=== PATIENT | male | born 1970 | race African-American/Black ===

== ENCOUNTER 2017-05-10 21:41 | Emergency (ER) | payer OTHER ==
[~2017-05-10] VITALS: Ht 175.3 cm; Wt 113.4 kg
[~2017-05-10 21:41] MED LIST: DOXY-4 PO; FLUC200T38 PO; LACTIN PO; LOSA50TA3 PO; OXYC-133 PO
[2017-05-10 21:48] VITALS: BP_SYST 125
[2017-05-10 22:28] LABS: BASOPHILS # (AUTO) 0.1 K/uL (0.0-0.2); BASOPHILS % (AUTO) 0.7 % (0.0-2.0); EOSINOPHILS # (AUTO) 0.1 K/uL (0.0-0.4); EOSINOPHILS % (AUTO) 1.4 % (0.0-4.0); HEMATOCRIT 40.8 % (36-54); HEMOGLOBIN 13.1 g/dL (14.0-18.0); LYMPHOCYTES # (AUTO) 3.9 K/uL (1.0-5.5); LYMPHOCYTES % (AUTO) 36.4 % (20.5-51.5); MEAN CORPUSCULAR HEMOGLOBIN 27 pg (27-31); MEAN CORPUSCULAR HGB CONC 32 % (32-36); MEAN CORPUSCULAR VOLUME 83 fL (79.0-98.0); MONOCYTES # (AUTO) 0.8 K/uL (0.0-1.0); MONOCYTES % (AUTO) 7.7 % (1.7-9.3); NEUTROPHILS # (AUTO) 5.8 K/uL (1.8-7.7); NEUTROPHILS % (AUTO) 53.8 % (40.0-70.0); PLATELET COUNT (AUTO) 198 K/uL (130-430); RED BLOOD CELL COUNT(AUTO) 4.92 MIL/uL (4.2-6.2); WHITE BLOOD COUNT (AUTO) 10.7 K/uL (4.8-10.8)
[2017-05-10 22:37] LABS: PROTHROMBIN TIME 10.2 SECS (9.5-12.5)
[2017-05-10 22:38] LABS: ALBUMIN 3.6 g/dL (3.4-4.8); CALCIUM 8.6 mg/dL (8.4-11.0); CREATININE 0.98 mg/dL (0.55-1.30); POTASSIUM 3.3 mmol/L (3.5-5.1); TOTAL BILIRUBIN 0.3 mg/dL (0.0-1.0)
--- NOTE | 2017-05-10 23:17 | NUR ---
PATIENT CALLED BACK TO TRIAGE FOR REASSESSMENT. PATIENT NOT IN WAITING ROOM. WILL CALL BACK IN 10 MINS.
--- NOTE | 2017-05-10 23:27 | NUR ---
PATIENT CALLED BACK FOR RE ASSESSMENT IN TRIAGE ROOM. PATIENT NOT IN WAITING ROOM. WILL CALL BACK IN 10 MINUTES.
--- NOTE | 2017-05-10 23:37 | NUR ---
Manoj jaffe in ED - 05/10/17 at 9783 by [email or web address] PATIENT CALLED BACK FOR RE ASSESSMENT IN TRIAGE ROOM. PATIENT NOT IN WAITING ROOM. WILL CALL BACK IN 10 MINUTES.
--- NOTE | 2017-05-10 23:37 | NUR ---
PATIENT CALLED BACK FOR RE ASSESSMENT IN TRIAGE ROOM. PATIENT NOT IN WAITING ROOM. PATIENT LEFT WITHOUT BEING SEEN BY PHYSICIAN
== END 2017-05-10 23:37 | disposition left against medical advice (07) ==
LOC: SED 21:41
DX: R07.89 Other chest pain (principal); Z53.21 Procedure and treatment not carried out due to patient leaving prior to being seen by health care provider
CPT/HCPCS: 36415; 80053; 83880; 84484; 85025; 85610-TC; 85730-TC; 93005; 99281

== ENCOUNTER 2019-07-13 11:14 | Emergency (ER) | payer OTHER ==
[~2019-07-13] VITALS: Ht 177.8 cm; Wt 95.3 kg
[~2019-07-13 11:14] MED LIST changes: -DOXY-4 PO; +DOXY100C PO; +FLUC200T PO; -FLUC200T38 PO
[2019-07-13 11:20] VITALS: BP_SYST 162
--- NOTE | 2019-07-13 11:32 | NUR ---
Placed in room 05 . Placed on child monitor, blood pressure machine and pulse oximeter. To gown for exam. Side rails up.
[2019-07-13] MEDS ORDERED: NACL 0.9% 1,000 ML IV ONE (11:37)
[2019-07-13] MEDS ORDERED: ASPIRIN 81 MG TAB.CHEW PO ONE (11:45)
[2019-07-13] MEDS ORDERED: METO50TA7 PO (12:06)
[2019-07-13 12:07] LABS: BASOPHILS # (AUTO) 0.1 K/uL (0.0-0.2); EOSINOPHILS # (AUTO) 0.1 K/uL (0.0-0.4); EOSINOPHILS % (AUTO) 0.6 % (0.0-4.0); HEMATOCRIT 44.5 % (36-54); HEMOGLOBIN 14.4 g/dL (14.0-18.0); LYMPHOCYTES # (AUTO) 3.2 K/uL (1.0-5.5); LYMPHOCYTES % (AUTO) 36.5 % (20.5-51.5); MEAN CORPUSCULAR HEMOGLOBIN 27 pg (27-31); MEAN CORPUSCULAR HGB CONC 32 % (32-36); MEAN CORPUSCULAR VOLUME 82 fL (79.0-98.0); MONOCYTES # (AUTO) 0.8 K/uL (0.0-1.0); MONOCYTES % (AUTO) 8.5 % (1.7-9.3); NEUTROPHILS # (AUTO) 4.7 K/uL (1.8-7.7); NEUTROPHILS % (AUTO) 53.4 % (40.0-70.0); PLATELET COUNT (AUTO) 202 K/uL (130-430); RED BLOOD CELL COUNT(AUTO) 5.43 MIL/uL (4.2-6.2); RED CELL DISTRIBUTION WIDTH 14.4 % (9.0-15.0); WHITE BLOOD COUNT (AUTO) 8.9 K/uL (4.8-10.8)
--- NOTE | 2019-07-13 12:10 | NUR ---
PATIENT PRESENTS TO THE ER WITH TWO DAY HX OF CHEST PAIN (LEFT SIDED) WITH RADIATION TO LEFT ARM; PATIENT ALSO STATES 2-3+ PEDAL EDEMA FOR A WEEK; NO TRAUMA, NO OTHER REMARKABLE S/S; PATIENT TO ER #5 AT 1130 WITH STAT EKG AND IV INSERTION; ERMD EVALUATION AT 1140
[2019-07-13 12:28] LABS: ANION GAP 7 (5-15); CALCIUM 8.7 mg/dL (8.4-11.0); CHLORIDE 105 mmol/L (98-107); GLUCOSE 99 mg/dL (70-99); POTASSIUM 3.5 mmol/L (3.5-5.1); SODIUM SERUM 141 mmol/L (136-145); UREA NITROGEN, BLOOD 9 mg/dL (8-21)
[2019-07-13 12:33] LABS: ALANINE AMINOTRANSFERASE 72 U/L (12-78); ALBUMIN 3.9 g/dL (3.4-4.8); ASPARTATE AMINOTRANSFERASE 26 U/L (10-37); TOTAL BILIRUBIN 0.6 mg/dL (0.0-1.0)
[2019-07-13 12:34] LABS: GFR AFRICAN AMERICAN 116 mL/min (>90)
[2019-07-13] MEDS ORDERED: PANTOPRAZOLE SODIUM 40 MG/VIAL (PROTONIX) IVP ONE (12:45)
--- NOTE | 2019-07-13 13:30 | NUR ---
REASSESSMENT; PATIENT REMAINS SEDATE AND PAIN FREE; DISPOSITION PENDING
[2019-07-13 14:37] VITALS: BP_SYST 156
--- NOTE | 2019-07-13 14:39 | NUR ---
REASSESSMENT BY ERMD; PREPARATIONS TO DISCHARGE; PATIENT REMAINS SEDATE AND ASYMPTOMATIC; IV OUT AND DRESSED AND ACI GIVEN TO PATIENT WHO INDICATED FULL UNDERSTANDING; DISCHARGED WITH AMBULATORY; IMPROVED
== END 2019-07-13 14:37 | disposition home or self-care (01) ==
LOC: SED 11:14
DX: R07.9 Chest pain, unspecified (principal); R06.02 Shortness of breath; I10 Essential (primary) hypertension; Z79.899 Other long term (current) drug therapy
CPT/HCPCS: 36415; 71045; 80053; 83880; 84484; 85025; 93005; 96374; 99285; C9113; J7030

== ENCOUNTER 2022-10-08 17:52 | Emergency (ER) | payer OTHER ==
[~2022-10-08] VITALS: Ht 177.8 cm; Wt 117.9 kg
[2022-10-08 17:52] VITALS: BP_SYST 177
[~2022-10-08 17:52] MED LIST changes: +METO50TA7 PO
--- NOTE | 2022-10-08 17:58 | NUR ---
Patient triaged and placed in waiting room. VSS and patient appears in no acute distress at this time. Accompanied by SELF, awaiting available bed, and MD notified of need for MSE.
--- NOTE | 2022-10-08 18:24 | NUR ---
PT STATES THAT HE WAS IN PARKING LOT OF WORK AND FELL, LANDING ON RIGHT SIDE OF FACE. RIGHT EYE IS SWOLLEN AND BRUISED. HIT RIGHT SIDE OF HEAD. DENIES K.O., DENIES VISION CHANGE. SEEN BY LUKE MAGUIRE DR AND SENT TO ER FOR EVALUATION
--- NOTE | 2022-10-08 18:40 | NUR ---
DR OVIEDO OUT TO TRIAGE ROOM TO EVALUATE PT.
[2022-10-08 19:55] VITALS: BP_SYST 162
--- NOTE | 2022-10-08 19:55 | NUR ---
Patient given written and verbal discharge instructions by Dr Macias in the [facility] and verbalizes understanding. ER MD discussed with patient the results and treatment provided. Patient in stable condition. ID arm band removed. no Rx of given. Patient educated on pain management and to follow up with PMD. Pain Scale 0/10. Opportunity for questions provided and answered. Medication side effect fact sheet provided.
== END 2022-10-08 19:55 | disposition home or self-care (01) ==
LOC: SED 17:52
DX: S05.11XA Contusion of eyeball and orbital tissues, right eye, initial encounter (principal); S09.90XA Unspecified injury of head, initial encounter; I10 Essential (primary) hypertension; Z79.899 Other long term (current) drug therapy; W18.40XA Slipping, tripping and stumbling without falling, unspecified, initial encounter; Y93.89 Activity, other specified; Y92.89 Other specified places as the place of occurrence of the external cause; Y99.8 Other external cause status
CPT/HCPCS: 70450-TC; 70480; 76376; 99284

== ENCOUNTER 2023-01-09 05:28 | Emergency (ER) | payer OTHER ==
[~2023-01-09] VITALS: Ht 175.3 cm; Wt 117.9 kg
[2023-01-09 05:38] VITALS: BP_SYST 154; PULSE 95; RESP 16; TEMP 97.7; O2SAT 98
[2023-01-09] MEDS ORDERED: KETOROLAC TROMETHAMINE 30 MG VIAL IVP ONE (05:45)
[2023-01-09] MEDS ORDERED: ONDANSETRON HCL 4 MG/2 ML VIAL IVP ONE (06:00)
[2023-01-09] MEDS ORDERED: MORPHINE 4 MG INJ. 4 MG/ML VIAL IVP ONE ×2 (06:30→07:45)
[2023-01-09] MEDS ORDERED: NACL 0.9% 1,000 ML IV ONE (06:30)
[2023-01-09 06:32] LABS: CALCIUM 8.7 mg/dL (8.4-11.0); CREATININE 0.97 mg/dL (0.55-1.30); POTASSIUM 3.3 mmol/L (3.5-5.1)
[2023-01-09 06:36] LABS: ALBUMIN 3.6 g/dL (3.4-4.8); TOTAL BILIRUBIN 0.5 mg/dL (0.0-1.0); TOTAL PROTEIN, SERUM 7.3 g/dL (6.4-8.3)
[2023-01-09 06:37] LABS: BASOPHILS % (AUTO) 0.4 % (0.0-2.0); EOSINOPHILS % (AUTO) 0.3 % (0.0-4.0); HEMATOCRIT 44.1 % (36-54); HEMOGLOBIN 14.3 g/dL (14.0-18.0); LYMPHOCYTES # (AUTO) 2.2 K/uL (1.0-5.5); LYMPHOCYTES % (AUTO) 24.1 % (20.5-51.5); MEAN CORPUSCULAR HEMOGLOBIN 26 pg (27-31); MEAN CORPUSCULAR HGB CONC 32 % (32-36); MEAN CORPUSCULAR VOLUME 80 fL (79.0-98.0); MONOCYTES # (AUTO) 0.8 K/uL (0.0-1.0); MONOCYTES % (AUTO) 8.3 % (1.7-9.3); NEUTROPHILS # (AUTO) 6.1 K/uL (1.8-7.7); NEUTROPHILS % (AUTO) 66.9 % (40.0-70.0); PLATELET COUNT (AUTO) 188 K/uL (130-430); RED BLOOD CELL COUNT(AUTO) 5.49 MIL/uL (4.2-6.2); RED CELL DISTRIBUTION WIDTH 14.6 % (9.0-15.0); WHITE BLOOD COUNT (AUTO) 9.2 K/uL (4.8-10.8)
[2023-01-09 07:20] LABS: BILIRUBIN,URINE NEGATIVE (NEGATIVE); BLOOD, URINE TRACE (NEGATIVE); CLARITY/URINE CLEAR (CLEAR); COLOR,URINE YELLOW (YELLOW); GLUCOSE,URINE NEGATIVE (NEGATIVE); KETONES,URINE TRACE (NEGATIVE); LEUKOCYTE ESTERASE ,URINE NEGATIVE (NEGATIVE); NITRITE, URINE NEGATIVE (NEGATIVE); PH,URINE 5.5 (5.0-8.0); PROTEIN URINE NEGATIVE (NEGATIVE); UROBILINOGEN,URINE 0.2 (0.2-1.0)
[2023-01-09 07:24] LABS: BACTERIA,URINE None Seen /HPF (None Seen); CALCIUM OXALATE CRYSTALS,UR None Seen /HPF (None Seen); CALCIUM PHOSPHATE CRYSTALS,UR None Seen /HPF (None Seen); COARSE GRANULAR CASTS,URINE None Seen /LPF (None Seen); FINE GRANULAR CASTS,URINE None Seen /LPF (None Seen); HYALINE CASTS, URINE None Seen /LPF (None Seen); MUCUS,URINE None Seen /LPF (None Seen); OTHER CASTS, URINE None Seen /LPF (None Seen); OTHER CRYSTALS,URINE None Seen /HPF (None Seen); RBC,URINE NONE SEEN /HPF (0-3); TRICHOMONAS,URINE None Seen /HPF (None Seen); TRIPLE PHOSPHATE CRYSTAL,UR None Seen /HPF (None Seen); URIC ACID CRYSTALS,URINE None Seen /HPF (None Seen); URINE AMORPHOUS PHOSPHATES None Seen /HPF (None Seen); URINE AMORPHOUS URATE None Seen /HPF (None Seen); WAXY CASTS,URINE None Seen /LPF (None Seen); WBC,URINE NONE SEEN /HPF (0-3); YEAST,URINE None Seen /HPF (None Seen)
[2023-01-09] MEDS ORDERED: MELO-89 PO (07:40)
[2023-01-09 08:28] VITALS: BP_SYST 149; PULSE 78; RESP 12; TEMP 98.1; O2SAT 99
== END 2023-01-09 08:20 | disposition home or self-care (01) ==
LOC: SED 05:28
DX: R10.31 Right lower quadrant pain (principal); R11.0 Nausea; R63.0 Anorexia; I10 Essential (primary) hypertension; Z79.899 Other long term (current) drug therapy
CPT/HCPCS: 99285; 74176; 96374; 96375; 96361; 80053; 81000; 83690; 85025; 36415; 76376; 96376; J1885; J2405; J2270; J7030